=== PATIENT | female | born 1950 | race African-American/Black ===

== ENCOUNTER 2017-09-27 09:33 | Inpatient (IN) | payer MEDICARE, MEDICAID ==
[~2017-09-27] VITALS: Ht 154.9 cm; Wt 65.4 kg
[~2017-09-27 09:33] MED LIST: ALBU8HFA4 IH; AZIT250T9 PO; CALC25 PO; CARV25 PO; CELE100 PO; CINA30 PO; CLON0.2T PO; FOLI0.8T2 PO; FURO80 PO; GABA-318 PO; INSLAN SQ; INSU100C14 SQ; INSU100V3 IV; LISI10TA7 PO; PHOSLOC PO; SIMV-261 PO; SODI650T PO; [UNRECOGNIZED DRUG - OTHER] PO
[2017-09-27 09:48] LABS: GLUCOSE,POINT OF CARE 150 MG/DL (70-110)
[2017-09-27] MEDS ORDERED: FAMO20 PO (09:52)
[2017-09-27] MEDS ORDERED: OMEP20 PO (09:52)
[2017-09-27] MEDS ORDERED: SEVEC800 PO (09:52)
[2017-09-27] MEDS ORDERED: AMLO-511 PO (09:52)
[2017-09-27] MEDS ORDERED: ESCI10TA PO (09:52)
[2017-09-27 10:20] LABS: BASOPHILS % (AUTO) 0.5 % (0.0-2.0); EOSINOPHILS % (AUTO) 0.9 % (1.0-6.0); HEMATOCRIT 39.4 % (36-46); HEMOGLOBIN 12.9 g/dL (12.0-16.0); LYMPHOCYTES # (AUTO) 0.7 K/uL (1.0-4.8); LYMPHOCYTES % (AUTO) 7.8 % (22.0-44.0); MEAN CORPUSCULAR HEMOGLOBIN 30.3 pg (26.0-34.0); MEAN CORPUSCULAR HGB CONC 32.7 G/dL (31.0-37.0); MEAN CORPUSCULAR VOLUME 93 fL (80-100); MONOCYTES # (AUTO) 0.6 K/uL (0.1-1.0); MONOCYTES % (AUTO) 6.7 % (2.0-9.0); NEUTROPHILS # (AUTO) 7.3 K/uL (1.8-7.7); NEUTROPHILS % (AUTO) 84.1 % (40.0-70.0); PLATELET COUNT (AUTO) 238 K/uL (150-450); RED BLOOD CELL COUNT(AUTO) 4.25 MIL/uL (4.00-5.20); RED CELL DISTRIBUTION WIDTH 15.1 % (11.5-14.5)
[2017-09-27 10:33] LABS: CALCIUM, TOTAL 9.2 mg/dL (8.8-10.5); CREATININE 6.64 mg/dL (0.60-1.30); POTASSIUM 4.7 mmol/L (3.5-5.1)
[2017-09-27 10:38] LABS: ALBUMIN 3.1 g/dL (3.4-5.0); BILIRUBIN,TOTAL 0.5 mg/dL (0.1-1.0); TOTAL PROTEIN, SERUM 7.1 g/dL (6.4-8.2)
[2017-09-27 12:23] LABS: APPEARANCE,URINE CLOUDY (CLEAR); BILIRUBIN,URINE NEGATIVE (NEGATIVE); GLUCOSE, URINE (UA) 100 mg/dL (NEGATIVE); KETONES,URINE NEGATIVE (NEGATIVE); LEUKOCYTE ESTERASE ,URINE TRACE (NEGATIVE); NITRATE,URINE NEGATIVE (NEGATIVE); OCCULT BLOOD,URINE NEGATIVE (NEGATIVE); PROTEIN,URINE SEE CONFIRM (NEGATIVE); UROBILINOGEN,URINE 0.2 mg/dL (<=1.0)
[2017-09-27 12:30] LABS: SULFOSALICYLIC ACID,URINE 3+ (Negative)
[2017-09-27 12:31] LABS: BACTERIA,URINE Few /HPF (None Seen); RBC,URINE 0-2 /HPF (0-2); SQUAMOUS EPITHELIAL CELL,UR Many /LPF (None Seen)
[2017-09-27] MEDS ORDERED: 0.9% SODIUM CHLORIDE 10 ML SYRINGE IVP PRN (13:45)
[2017-09-27] MEDS ORDERED: ONDANSETRON HCL 4 MG/2 ML VIAL IVP PRN (13:45)
[2017-09-27] MEDS ORDERED: ACETAMINOPHEN 325 MG TABLET PO PRN ×2 (13:45→15:45)
[2017-09-27] MEDS ORDERED: MORPHINE SULFATE 4 MG/ML SYRINGE IVP ONE (14:15)
[2017-09-27] MEDS ORDERED: DEXTROSE 50%-WATER 25 GM/50 ML SYRINGE IVP PRN (15:45)
[2017-09-27] MEDS ORDERED: BISACODYL 10 MG RECTAL RECTAL SUPPOSITORY PR PRN (15:45)
[2017-09-27] MEDS ORDERED: ASPIRIN 81 MG CHEWABLE TABLET PO SCH (15:45)
[2017-09-27] MEDS: CefTRIAXone SODIUM 1 GM in DEXTROSE 5%-WATER 10 ML IV SCH (17:10)
[2017-09-27] MEDS ORDERED: LABETALOL HCL 5 MG/ML 20 ML VIAL IVP PRN (18:15)
[2017-09-27] MEDS ORDERED: HEPARIN SODIUM,PORCINE 5,000 UNITS/ML VIAL IVP PRN ×2 (18:15)
[2017-09-27 18:30] VITALS: BP 137/50
[2017-09-27] MEDS ORDERED: HEPARIN SODIUM,PORCINE 5,000 UNITS/ML VIAL IVP ONE (18:45)
[2017-09-27 18:57] LABS: GLUCOMETER DEV NAME(LOC) 5S 1M; GLUCOSE,POINT OF CARE 146 MG/DL (70-110)
[2017-09-27 20:37] VITALS: BP 141/58
[2017-09-27] MEDS: DOCUSATE SODIUM 100 MG CAPSULE PO SCH (20:46)
[2017-09-27] MEDS: ATORVASTATIN CALCIUM 20 MG TABLET PO SCH (20:46)
[2017-09-27] MEDS ORDERED: HEPARIN SODIUM,PORCINE 5,000 UNITS/ML VIAL SQ SCH (21:00)
[2017-09-27 21:33] LABS: INR 1.1 (0.9-1.1); PROTHROMBIN TIME 11.4 SEC (9.4-11.6)
[2017-09-27] MEDS: INSULIN ASPART 100 UNITS/ML SQ PRN (21:38)
[2017-09-27] MEDS: HEPARIN SODIUM 25000 UNITS/D5W 250 ML IV PRN (21:59)
[2017-09-27 22:28] VITALS: BP 152/63
[2017-09-27] MEDS: TEMAZEPAM 7.5 MG CAPSULE PO PRN (22:29)
[2017-09-28] VITALS (26 sets, daily range): BP systolic 106–170; BP diastolic 42–81
[2017-09-28 01:33] LABS: GLUCOMETER DEV NAME(LOC) 5N 1N; GLUCOSE,POINT OF CARE 208 MG/DL (70-110)
[2017-09-28] MEDS ORDERED: FLUT1AER IH (02:08)
[2017-09-28 04:39] LABS: CHOL/HDL RATIO 2.3 (3.9-5.7)
[2017-09-28] MEDS: HEPARIN SODIUM 25000 UNITS/D5W 250 ML IV PRN (05:42)
[2017-09-28] MEDS: INSULIN ASPART 100 UNITS/ML SQ PRN ×2 (06:10→21:09)
[2017-09-28] MEDS: PANTOPRAZOLE SODIUM 40 MG DR TABLET PO SCH (08:29)
[2017-09-28] MEDS: DOCUSATE SODIUM 100 MG CAPSULE PO SCH ×2 (08:29→20:47)
[2017-09-28] MEDS ORDERED: ASPIRIN 325 MG EC TABLET PO SCH (09:00)
[2017-09-28] MEDS ORDERED: ALPRAZolam 0.5 MG TABLET PO ONE (10:30)
[2017-09-28] MEDS ORDERED: SODIUM CHLORIDE 0.9% 1,000 ML IV ONE (10:40)
[2017-09-28 10:58] LABS: GLUCOMETER DEV NAME(LOC) 5N 1N; GLUCOSE,POINT OF CARE 105 MG/DL (70-110)
[2017-09-28] MEDS ORDERED: HEPARIN SODIUM,PORCINE 5,000 UNITS/ML VIAL SQ ONE (12:00)
[2017-09-28] MEDS ORDERED: LIDOCAINE HCL/PF 1% 2 ML VIAL INJ ONE (12:00)
[2017-09-28] MEDS ORDERED: SODIUM BICARBONATE 50 MEQ/50 ML VIAL ONE (12:31)
[2017-09-28] MEDS ORDERED: LIDOCAINE HCL/PF 1% 30 ML VIAL ONE (12:31)
[2017-09-28] MEDS ORDERED: HEPARIN SODIUM 1000 UNITS/NS 1,000 ML ONE (12:31)
[2017-09-28] MEDS ORDERED: IOHEXOL 300 MG/ML 150 ML VIAL ONE (12:31)
[2017-09-28] MEDS ORDERED: FentaNYL CITRATE-PF 100 MCG/2 ML VIAL ONE (13:11)
[2017-09-28] MEDS ORDERED: MIDAZOLAM HCL 2 MG/2 ML VIAL ONE (13:11)
[2017-09-28] MEDS ORDERED: IOHEXOL 300 MG/ML 100 ML VIAL ONE ×2 (13:31→13:41)
[2017-09-28] MEDS ORDERED: SODIUM CHLORIDE 0.9% 500 ML IV ONE (13:39)
[2017-09-28] MEDS ORDERED: HEPARIN SODIUM 2,000 UNITS in HEPARIN SODIUM 1000 UNITS/NS 1,000 ML IARTER ONE (13:39)
[2017-09-28] MEDS ORDERED: HEPARIN SODIUM,PORCINE 1,000 UNITS/ML 10 ML VIAL ONE (13:40)
[2017-09-28] MEDS ORDERED: NITROGLYCERIN 50 MG/D5% WATER 0 ML ONE (13:41)
[2017-09-28] MEDS ORDERED: VERAPAMIL HCL 2.5 MG/ML 2 ML VIAL ONE (13:41)
[2017-09-28] MEDS ORDERED: LIDOCAINE 1% 30 ML/SOD BICARB 8.4% 4 ML SQ ONE (13:45)
[2017-09-28] MEDS ORDERED: FentaNYL CITRATE-PF 100 MCG/2 ML VIAL IVP ONE (13:45)
[2017-09-28] MEDS ORDERED: IOHEXOL 300 MG/ML 100 ML VIAL IARTER ONE (13:45)
[2017-09-28] MEDS ORDERED: HEPARIN SODIUM,PORCINE 5,000 UNITS/ML VIAL IVP ONE (13:45)
[2017-09-28] MEDS ORDERED: IOHEXOL 300 MG/ML 150 ML VIAL IARTER ONE (13:45)
[2017-09-28] MEDS ORDERED: MIDAZOLAM HCL 2 MG/2 ML VIAL IVP ONE (13:45)
[2017-09-28] MEDS: MORPHINE SULFATE 2 MG/ML SYRINGE IVP PRN (15:07)
[2017-09-28] MEDS: CefTRIAXone SODIUM 1 GM in DEXTROSE 5%-WATER 10 ML IV SCH (16:08)
[2017-09-28] MEDS ORDERED: SODIUM CHLORIDE 0.9% 2,000 ML IV ONE (17:28)
[2017-09-28] MEDS ORDERED: MANNITOL 25%-12.5 GM/50 ML VIAL IVP PRN (18:15)
[2017-09-28] MEDS ORDERED: HEPARIN SODIUM,PORCINE 1,000 UNITS/ML VIAL IVP ONE ×2 (18:15)
[2017-09-28 19:14] LABS: GLUCOSE,POINT OF CARE 116 MG/DL (70-110)
[2017-09-28] MEDS: CARVEDILOL 3.125 MG TABLET PO SCH (20:46)
[2017-09-28] MEDS: ATORVASTATIN CALCIUM 20 MG TABLET PO SCH (20:47)
[2017-09-28] MEDS: TEMAZEPAM 7.5 MG CAPSULE PO PRN (20:47)
[2017-09-29] VITALS (9 sets, daily range): BP systolic 123–158; BP diastolic 42–92
[2017-09-29 05:45] LABS: BASOPHILS % (AUTO) 0.6 % (0.0-2.0); EOSINOPHILS % (AUTO) 3.1 % (1.0-6.0); HEMOGLOBIN 11.2 g/dL (12.0-16.0); LYMPHOCYTES # (AUTO) 0.8 K/uL (1.0-4.8); MEAN CORPUSCULAR HEMOGLOBIN 30.1 pg (26.0-34.0); MEAN CORPUSCULAR HGB CONC 32.8 G/dL (31.0-37.0); MEAN CORPUSCULAR VOLUME 92 fL (80-100); MONOCYTES # (AUTO) 0.8 K/uL (0.1-1.0); MONOCYTES % (AUTO) 10.8 % (2.0-9.0); NEUTROPHILS # (AUTO) 5.2 K/uL (1.8-7.7); NEUTROPHILS % (AUTO) 73.5 % (40.0-70.0); PLATELET COUNT (AUTO) 199 K/uL (150-450); RED BLOOD CELL COUNT(AUTO) 3.71 MIL/uL (4.00-5.20); RED CELL DISTRIBUTION WIDTH 14.8 % (11.5-14.5)
[2017-09-29 06:08] LABS: ALBUMIN 2.6 g/dL (3.4-5.0); BILIRUBIN,TOTAL 0.3 mg/dL (0.1-1.0); CREATININE 5.98 mg/dL (0.60-1.30); PHOSPHORUS 5.8 mg/dL (2.5-4.9); POTASSIUM 5.7 mmol/L (3.5-5.1); TOTAL PROTEIN, SERUM 6.4 g/dL (6.4-8.2)
[2017-09-29 06:23] LABS: GLUCOSE,POINT OF CARE 109 MG/DL (70-110)
[2017-09-29 08:03] LABS: GLUCOMETER DEV NAME(LOC) 5S 1M; GLUCOSE,POINT OF CARE 119 MG/DL (70-110)
[2017-09-29 08:47] LABS: GLUCOSE,POINT OF CARE 195 MG/DL (70-110)
[2017-09-29 08:47] LABS: GLUCOSE,POINT OF CARE 134 MG/DL (70-110)
[2017-09-29] MEDS ORDERED: LISINOPRIL 5 MG TABLET PO SCH ×2 (09:00)
[2017-09-29] MEDS: DOCUSATE SODIUM 100 MG CAPSULE PO SCH ×3 (09:00→20:47)
[2017-09-29] MEDS: PANTOPRAZOLE SODIUM 40 MG DR TABLET PO SCH (09:21)
[2017-09-29] MEDS: CLOPIDOGREL BISULFATE 75 MG TABLET PO SCH (09:21)
[2017-09-29] MEDS: ASPIRIN 81 MG EC TABLET PO SCH (09:21)
[2017-09-29] MEDS: MORPHINE SULFATE 2 MG/ML SYRINGE IVP PRN ×2 (09:22→14:08)
[2017-09-29] MEDS: CARVEDILOL 3.125 MG TABLET PO SCH ×2 (09:22→20:47)
[2017-09-29] MEDS: CefTRIAXone SODIUM 1 GM in DEXTROSE 5%-WATER 10 ML IV SCH (16:23)
[2017-09-29] MEDS: ONDANSETRON HCL 4 MG/2 ML VIAL IVP PRN (17:50)
[2017-09-29] MEDS: SEVELAMER CARBONATE 800 MG TABLET PO SCH (18:30)
[2017-09-29] MEDS: INSULIN ASPART 100 UNITS/ML SQ PRN (18:30)
[2017-09-29] MEDS: ATORVASTATIN CALCIUM 40 MG TABLET PO SCH (20:47)
[2017-09-29 22:43] LABS: GLUCOMETER DEV NAME(LOC) 5N 2S; GLUCOSE,POINT OF CARE 166 MG/DL (70-110)
[2017-09-29] MEDS: TEMAZEPAM 7.5 MG CAPSULE PO PRN (23:34)
[2017-09-30] VITALS (9 sets, daily range): BP systolic 137–165; BP diastolic 50–78
[2017-09-30 06:58] LABS: BASOPHILS % (AUTO) 0.6 % (0.0-2.0); EOSINOPHILS % (AUTO) 3.6 % (1.0-6.0); HEMATOCRIT 33.1 % (36-46); HEMOGLOBIN 10.9 g/dL (12.0-16.0); LYMPHOCYTES % (AUTO) 16.9 % (22.0-44.0); MEAN CORPUSCULAR HEMOGLOBIN 30.2 pg (26.0-34.0); MEAN CORPUSCULAR VOLUME 91 fL (80-100); MONOCYTES # (AUTO) 0.7 K/uL (0.1-1.0); MONOCYTES % (AUTO) 11.2 % (2.0-9.0); NEUTROPHILS # (AUTO) 4.1 K/uL (1.8-7.7); NEUTROPHILS % (AUTO) 67.7 % (40.0-70.0); PLATELET COUNT (AUTO) 182 K/uL (150-450); RED BLOOD CELL COUNT(AUTO) 3.62 MIL/uL (4.00-5.20); RED CELL DISTRIBUTION WIDTH 14.9 % (11.5-14.5)
[2017-09-30 07:17] LABS: GLUCOMETER DEV NAME(LOC) 5N 2S; GLUCOSE,POINT OF CARE 98 MG/DL (70-110)
[2017-09-30 07:37] LABS: ALBUMIN 2.6 g/dL (3.4-5.0); BILIRUBIN,TOTAL 0.3 mg/dL (0.1-1.0); CALCIUM, TOTAL 9.4 mg/dL (8.8-10.5); CREATININE 4.56 mg/dL (0.60-1.30); MAGNESIUM 1.8 mg/dL (1.80-2.40); TOTAL PROTEIN, SERUM 6.2 g/dL (6.4-8.2)
[2017-09-30] MEDS ORDERED: SODIUM CHLORIDE 0.9% 2,000 ML IV ONE (08:07)
[2017-09-30] MEDS: DOCUSATE SODIUM 100 MG CAPSULE PO SCH ×2 (08:29→21:00)
[2017-09-30] MEDS: PANTOPRAZOLE SODIUM 40 MG DR TABLET PO SCH (08:29)
[2017-09-30] MEDS: CLOPIDOGREL BISULFATE 75 MG TABLET PO SCH (08:29)
[2017-09-30] MEDS: SEVELAMER CARBONATE 800 MG TABLET PO SCH ×4 (08:29→18:00)
[2017-09-30] MEDS: ASPIRIN 81 MG EC TABLET PO SCH (08:29)
[2017-09-30 08:37] LABS: GLUCOSE,POINT OF CARE 133 MG/DL (70-110)
[2017-09-30] MEDS: MORPHINE SULFATE 2 MG/ML SYRINGE IVP PRN (11:40)
[2017-09-30] MEDS: CARVEDILOL 6.25 MG TABLET PO SCH ×2 (12:08→22:22)
[2017-09-30] MEDS: LISINOPRIL 10 MG TABLET PO SCH (12:11)
[2017-09-30] MEDS: ISOSORBIDE MONONITRATE 30 MG ER TABLET PO SCH (12:11)
[2017-09-30] MEDS: ONDANSETRON HCL 4 MG/2 ML VIAL IVP PRN (12:23)
[2017-09-30] MEDS: CefTRIAXone SODIUM 1 GM in DEXTROSE 5%-WATER 10 ML IV SCH (15:52)
[2017-09-30] MEDS ORDERED: HEPARIN SODIUM,PORCINE 1,000 UNITS/ML VIAL IVP ONE (16:34)
[2017-09-30] MEDS ORDERED: LORazepam 2 MG/ML VIAL IVP ONE ×2 (18:15→18:45)
[2017-09-30] MEDS: ATORVASTATIN CALCIUM 40 MG TABLET PO SCH (22:22)
[2017-10-01 03:53] LABS: GLUCOMETER DEV NAME(LOC) 5N 2S; GLUCOSE,POINT OF CARE 112 MG/DL (70-110)
[2017-10-01] MEDS: INSULIN ASPART 100 UNITS/ML SQ PRN ×2 (05:51→12:07)
[2017-10-01 06:04] VITALS: BP 148/59
[2017-10-01 06:34] LABS: BASOPHILS % (AUTO) 0.5 % (0.0-2.0); EOSINOPHILS % (AUTO) 2.4 % (1.0-6.0); HEMATOCRIT 34.6 % (36-46); HEMOGLOBIN 11.3 g/dL (12.0-16.0); LYMPHOCYTES # (AUTO) 0.7 K/uL (1.0-4.8); LYMPHOCYTES % (AUTO) 9.8 % (22.0-44.0); MEAN CORPUSCULAR HEMOGLOBIN 30.2 pg (26.0-34.0); MEAN CORPUSCULAR HGB CONC 32.7 G/dL (31.0-37.0); MEAN CORPUSCULAR VOLUME 92 fL (80-100); MONOCYTES # (AUTO) 0.7 K/uL (0.1-1.0); MONOCYTES % (AUTO) 10.2 % (2.0-9.0); NEUTROPHILS # (AUTO) 5.2 K/uL (1.8-7.7); NEUTROPHILS % (AUTO) 77.1 % (40.0-70.0); PLATELET COUNT (AUTO) 197 K/uL (150-450); RED BLOOD CELL COUNT(AUTO) 3.75 MIL/uL (4.00-5.20)
[2017-10-01 07:11] LABS: ALBUMIN 2.7 g/dL (3.4-5.0); BILIRUBIN,TOTAL 0.3 mg/dL (0.1-1.0); CALCIUM, TOTAL 9.3 mg/dL (8.8-10.5); CREATININE 4.14 mg/dL (0.60-1.30); MAGNESIUM 1.9 mg/dL (1.80-2.40); POTASSIUM 4.4 mmol/L (3.5-5.1); TOTAL PROTEIN, SERUM 6.3 g/dL (6.4-8.2)
[2017-10-01 07:42] VITALS: BP 134/62
[2017-10-01] MEDS: SEVELAMER CARBONATE 800 MG TABLET PO SCH ×2 (08:00→14:15)
[2017-10-01] MEDS ORDERED: LORazepam 2 MG/ML VIAL IVP ONE (08:00)
[2017-10-01] MEDS ORDERED: VITAMIN B COMP/VIT C/FOLIC ACID CAPSULE PO SCH (09:00)
[2017-10-01 09:09] LABS: GLUCOMETER DEV NAME(LOC) 5S 2N; GLUCOSE,POINT OF CARE 118 MG/DL (70-110)
[2017-10-01 09:10] LABS: GLUCOMETER DEV NAME(LOC) 5S 2N; GLUCOSE,POINT OF CARE 158 MG/DL (70-110)
[2017-10-01 09:10] LABS: GLUCOMETER DEV NAME(LOC) 5S 2N; GLUCOSE,POINT OF CARE 158 MG/DL (70-110)
[2017-10-01 09:10] LABS: GLUCOMETER DEV NAME(LOC) 5S 2N; GLUCOSE,POINT OF CARE 165 MG/DL (70-110)
[2017-10-01] MEDS: ONDANSETRON HCL 4 MG/2 ML VIAL IVP PRN (10:44)
[2017-10-01] MEDS ORDERED: IOVERSOL 350 MG/ML 100 ML VIAL ONE (10:49)
[2017-10-01 11:31] VITALS: BP 142/60
[2017-10-01] MEDS: ISOSORBIDE MONONITRATE 30 MG ER TABLET PO SCH (14:16)
[2017-10-01] MEDS: PANTOPRAZOLE SODIUM 40 MG DR TABLET PO SCH (14:17)
[2017-10-01] MEDS: CARVEDILOL 6.25 MG TABLET PO SCH (14:17)
[2017-10-01] MEDS: LISINOPRIL 10 MG TABLET PO SCH (14:17)
[2017-10-01] MEDS: DOCUSATE SODIUM 100 MG CAPSULE PO SCH (14:17)
[2017-10-01 15:25] VITALS: BP 139/43
[2017-10-01] MEDS ORDERED: ATOR40TA28 PO (16:01)
[2017-10-01] MEDS ORDERED: CARV6.2579 PO (16:01)
[2017-10-01] MEDS ORDERED: LISI-661 PO (16:02)
[2017-10-01] MEDS ORDERED: ISOS30TA6 PO (16:02)
[2017-10-01 20:03] LABS: GLUCOMETER DEV NAME(LOC) 5S 2N; GLUCOSE,POINT OF CARE 102 MG/DL (70-110)
== END 2017-10-01 16:35 | disposition home or self-care (01) | DRG 280 ==
LOC: EMS 09:34 → AHU 13:55 → 5N 13:55 → 5S 13:55 → ICU 09-28 14:31 → 5N 09-29 13:46
PROVIDERS: ADMIT Internal Medicine; ATTEND Internal Medicine
PROC: 4A023N7 Measurement of Cardiac Sampling and Pressure, Left Heart, Percutaneous Approach (ICD-10-PCS; principal; 2017-09-28)
PROC: B211YZZ Fluoroscopy of Multiple Coronary Arteries using Other Contrast (ICD-10-PCS; 2017-09-28)
PROC: B215YZZ Fluoroscopy of Left Heart using Other Contrast (ICD-10-PCS; 2017-09-28)
PROC: 5A1D70Z Performance of Urinary Filtration, Intermittent, Less than 6 Hours Per Day (ICD-10-PCS; 2017-09-28)
PROC: B41F1ZZ Fluoroscopy of Right Lower Extremity Arteries using Low Osmolar Contrast (ICD-10-PCS; 2017-09-28)
PROC: 5A1D70Z Performance of Urinary Filtration, Intermittent, Less than 6 Hours Per Day (ICD-10-PCS; 2017-09-30)
DX: I21.9 Acute myocardial infarction, unspecified (principal); N18.6 End stage renal disease; I60.9 Nontraumatic subarachnoid hemorrhage, unspecified; I13.2 Hypertensive heart and chronic kidney disease with heart failure and with stage 5 chronic kidney disease, or end stage renal disease; E11.22 Type 2 diabetes mellitus with diabetic chronic kidney disease; I42.9 Cardiomyopathy, unspecified; E83.39 Other disorders of phosphorus metabolism; N25.81 Secondary hyperparathyroidism of renal origin; I50.20 Unspecified systolic (congestive) heart failure; R74.8 Abnormal levels of other serum enzymes; E11.51 Type 2 diabetes mellitus with diabetic peripheral angiopathy without gangrene; G89.4 Chronic pain syndrome; R62.7 Adult failure to thrive; D64.9 Anemia, unspecified; K57.90 Diverticulosis of intestine, part unspecified, without perforation or abscess without bleeding; E78.00 Pure hypercholesterolemia, unspecified; E87.5 Hyperkalemia; E78.5 Hyperlipidemia, unspecified; F17.210 Nicotine dependence, cigarettes, uncomplicated; I25.10 Atherosclerotic heart disease of native coronary artery without angina pectoris; F40.240 Claustrophobia; K57.30 Diverticulosis of large intestine without perforation or abscess without bleeding; Z86.73 Personal history of transient ischemic attack (TIA), and cerebral infarction without residual deficits; Z90.49 Acquired absence of other specified parts of digestive tract; Z99.2 Dependence on renal dialysis; Z88.5 Allergy status to narcotic agent; Z79.4 Long term (current) use of insulin; Z79.899 Other long term (current) drug therapy
CPT/HCPCS: 70450; 70496; 74018; 74176; 80074; 82962; 83735; 84100; 87081; 87086; 87340; 93005; 93306; 96374; 96375; 99285; J0696; J1644; J2060; J2250; J2270; J2405; J3010; J3490; J7030; J7060; Q9967

== ENCOUNTER 2018-02-01 18:58 | Inpatient (IN) | payer MEDICARE, MEDICAID ==
[~2018-02-01] VITALS: Ht 154.9 cm; Wt 60.0 kg
[~2018-02-01 18:58] MED LIST changes: +AMLO-511 PO; +ATOR40TA28 PO; -AZIT250T9 PO; -CALC25 PO; -CARV25 PO; +CARV6.2579 PO; -CELE100 PO; -CINA30 PO; -CLON0.2T PO; +ESCI10TA PO; +FAMO20 PO; +FLUT1AER IH; -FURO80 PO; -GABA-318 PO; -INSLAN SQ; -INSU100C14 SQ; -INSU100V3 IV; +ISOS30TA6 PO; +LISI-661 PO; -LISI10TA7 PO; +OMEP20 PO; -PHOSLOC PO; +SEVEC800 PO; -SIMV-261 PO; -SODI650T PO; -[UNRECOGNIZED DRUG - OTHER] PO
[2018-02-01 21:36] LABS: BASOPHILS % (AUTO) 0.7 % (0.0-2.0); EOSINOPHILS % (AUTO) 3.4 % (1.0-6.0); HEMATOCRIT 36.5 % (36-46); HEMOGLOBIN 12.3 g/dL (12.0-16.0); LYMPHOCYTES # (AUTO) 0.7 K/uL (1.0-4.8); LYMPHOCYTES % (AUTO) 11.3 % (22.0-44.0); MEAN CORPUSCULAR HEMOGLOBIN 31.6 pg (26.0-34.0); MEAN CORPUSCULAR HGB CONC 33.6 G/dL (31.0-37.0); MEAN CORPUSCULAR VOLUME 94 fL (80-100); MONOCYTES # (AUTO) 0.6 K/uL (0.1-1.0); MONOCYTES % (AUTO) 9.8 % (2.0-9.0); NEUTROPHILS # (AUTO) 4.4 K/uL (1.8-7.7); NEUTROPHILS % (AUTO) 74.8 % (40.0-70.0); PLATELET COUNT (AUTO) 156 K/uL (150-450); RED BLOOD CELL COUNT(AUTO) 3.89 MIL/uL (4.00-5.20); RED CELL DISTRIBUTION WIDTH 16.3 % (11.5-14.5)
[2018-02-01 21:50] LABS: LIPASE 573 U/L (73-393)
[2018-02-01] MEDS ORDERED: ALBUTEROL SULFATE 2.5 MG/0.5 ML NEB SOLUTION NEB ONE (22:00)
[2018-02-01] MEDS ORDERED: IPRATROPIUM BROMIDE 0.5 MG/2.5 ML NEB SOLUTION NEB ONE (22:00)
[2018-02-01 22:15] LABS: B-TYPE NATRIURETIC PEPTIDE > 5000 pg/mL (0-100)
[2018-02-01 23:07] LABS: ALBUMIN 2.9 g/dL (3.4-5.0); BILIRUBIN,TOTAL 0.5 mg/dL (0.1-1.0); CALCIUM, TOTAL 8.5 mg/dL (8.8-10.5); CREATININE 6.72 mg/dL (0.60-1.30); TOTAL PROTEIN, SERUM 6.7 g/dL (6.4-8.2)
[2018-02-01 23:11] LABS: POTASSIUM 2.3 mmol/L (3.5-5.1)
[2018-02-01] MEDS ORDERED: POTASSIUM CHLORIDE 20 MEQ ER TABLET PO ONE (23:15)
[2018-02-01] MEDS ORDERED: MethylPREDNISolone SOD SUCC 125 MG/2 ML VIAL IVP ONE (23:30)
[2018-02-01] MEDS ORDERED: AZITHROMYCIN 500 MG/NS 250 ML IV ONE (23:30)
[2018-02-02 01:52] VITALS: BP 136/62
[2018-02-02 04:30] VITALS: BP 150/69
[2018-02-02] MEDS ORDERED: ALBUTEROL SULFATE 2.5 MG/0.5 ML NEB SOLUTION NEB PRN (05:30)
[2018-02-02] MEDS ORDERED: ONDANSETRON HCL 4 MG/2 ML VIAL IVP PRN ×2 (05:30)
[2018-02-02] MEDS ORDERED: ACETAMINOPHEN 325 MG TABLET PO PRN ×2 (05:30)
[2018-02-02] MEDS ORDERED: 0.9% SODIUM CHLORIDE 10 ML SYRINGE IVP PRN ×2 (05:30)
[2018-02-02] MEDS ORDERED: BISACODYL 10 MG RECTAL RECTAL SUPPOSITORY PR PRN (05:30)
[2018-02-02] MEDS ORDERED: IPRATROPIUM BROMIDE 0.5 MG/2.5 ML NEB SOLUTION NEB PRN (05:30)
[2018-02-02] MEDS ORDERED: DEXTROSE 50%-WATER 25 GM/50 ML SYRINGE IVP PRN (06:00)
[2018-02-02 06:13] LABS: BASOPHILS % (AUTO) 0.1 % (0.0-2.0); EOSINOPHILS % (AUTO) 0 % (1.0-6.0); HEMATOCRIT 36.5 % (36-46); HEMOGLOBIN 12.6 g/dL (12.0-16.0); LYMPHOCYTES # (AUTO) 0.2 K/uL (1.0-4.8); LYMPHOCYTES % (AUTO) 2.8 % (22.0-44.0); MEAN CORPUSCULAR HEMOGLOBIN 32.9 pg (26.0-34.0); MEAN CORPUSCULAR HGB CONC 34.6 G/dL (31.0-37.0); MEAN CORPUSCULAR VOLUME 95 fL (80-100); MONOCYTES # (AUTO) 0.1 K/uL (0.1-1.0); MONOCYTES % (AUTO) 1.3 % (2.0-9.0); NEUTROPHILS # (AUTO) 5.7 K/uL (1.8-7.7); PLATELET COUNT (AUTO) 153 K/uL (150-450); RED BLOOD CELL COUNT(AUTO) 3.84 MIL/uL (4.00-5.20); RED CELL DISTRIBUTION WIDTH 16.7 % (11.5-14.5)
[2018-02-02] MEDS: CefTRIAXone SODIUM 1 GM in DEXTROSE 5%-WATER 10 ML IV SCH (06:18)
[2018-02-02] MEDS: INSULIN LISPRO 100 UNITS/ML SQ PRN ×4 (06:20→23:16)
[2018-02-02 06:21] LABS: NEUTROPHILS % (AUTO) 95.8 % (40.0-70.0)
[2018-02-02 06:23] LABS: CALCIUM, TOTAL 8.8 mg/dL (8.8-10.5); CREATININE 7.12 mg/dL (0.60-1.30); POTASSIUM 3.3 mmol/L (3.5-5.1)
[2018-02-02 06:32] LABS: ALBUMIN 2.9 g/dL (3.4-5.0); BILIRUBIN,TOTAL 0.6 mg/dL (0.1-1.0); MAGNESIUM 2.4 mg/dL (1.80-2.40); TOTAL PROTEIN, SERUM 6.7 g/dL (6.4-8.2)
[2018-02-02 07:10] LABS: PHOSPHORUS 9.6 mg/dL (2.5-4.9)
[2018-02-02 07:17] VITALS: BP 153/72
[2018-02-02] MEDS: SEVELAMER CARBONATE 800 MG TABLET PO SCH ×3 (08:03→16:43)
[2018-02-02] MEDS: MethylPREDNISolone SOD SUCC 40 MG/ML VIAL IVP SCH ×3 (08:03→23:36)
[2018-02-02] MEDS: FLUTICASONE/VILANTEROL 100-25 MCG/INH INHALER [14] IH SCH (08:03)
[2018-02-02] MEDS: HEPARIN SODIUM,PORCINE 5,000 UNITS/ML VIAL SQ SCH ×2 (08:03→21:00)
[2018-02-02] MEDS: ESCITALOPRAM OXALATE 10 MG TABLET PO SCH (08:04)
[2018-02-02] MEDS: LISINOPRIL 10 MG TABLET PO SCH (08:04)
[2018-02-02] MEDS: VITAMIN B COMP/VIT C/FOLIC ACID CAPSULE PO SCH (08:04)
[2018-02-02] MEDS: OMEPRAZOLE 20 MG CAPSULE PO SCH (08:04)
[2018-02-02] MEDS: ISOSORBIDE MONONITRATE 30 MG ER TABLET PO SCH (08:04)
[2018-02-02] MEDS: AmLODIPine BESYLATE 5 MG TABLET PO SCH (08:05)
[2018-02-02] MEDS: ASPIRIN 81 MG CHEWABLE TABLET PO SCH (08:05)
[2018-02-02] MEDS: CARVEDILOL 6.25 MG TABLET PO SCH ×2 (08:05→22:50)
[2018-02-02] MEDS: DOCUSATE SODIUM 100 MG CAPSULE PO SCH ×2 (08:05→22:50)
[2018-02-02 11:21] VITALS: BP 121/53
[2018-02-02] MEDS ORDERED: SODIUM CHLORIDE 0.9% 100 ML ONE (11:32)
[2018-02-02] MEDS ORDERED: SODIUM CHLORIDE 0.9% 2,000 ML IV ONE (12:17)
[2018-02-02] MEDS ORDERED: LORazepam 2 MG/ML VIAL IVP ONE (13:30)
[2018-02-02 13:57] LABS: GLUCOMETER DEV NAME(LOC) 5S 2Q; GLUCOSE,POINT OF CARE 264 MG/DL (70-110)
[2018-02-02 15:28] VITALS: BP 123/49
[2018-02-02] MEDS ORDERED: LIDOCAINE HCL/PF 1% 2 ML VIAL ONE (17:50)
[2018-02-02 19:48] LABS: GLUCOMETER DEV NAME(LOC) 5S 2Q; GLUCOSE,POINT OF CARE 215 MG/DL (70-110)
[2018-02-02] MEDS: ALBUTEROL SULFATE 2.5 MG/0.5 ML NEB SOLUTION NEB SCH (20:00)
[2018-02-02] MEDS: IPRATROPIUM BROMIDE 0.5 MG/2.5 ML NEB SOLUTION NEB SCH (20:00)
[2018-02-02 20:08] VITALS: BP 130/59
[2018-02-02 20:49] LABS: GLUCOMETER DEV NAME(LOC) 5S 2Q; GLUCOSE,POINT OF CARE 158 MG/DL (70-110)
[2018-02-02] MEDS ORDERED: HEPARIN SODIUM,PORCINE 5,000 UNITS/ML VIAL IVP ONE (22:45)
[2018-02-02] MEDS ORDERED: HEPARIN SODIUM,PORCINE 5,000 UNITS/ML VIAL IVP PRN ×2 (22:45)
[2018-02-02] MEDS: ATORVASTATIN CALCIUM 40 MG TABLET PO SCH (22:50)
[2018-02-02 23:05] LABS: GLUCOMETER DEV NAME(LOC) 5S 1M; GLUCOSE,POINT OF CARE 225 MG/DL (70-110)
[2018-02-02] MEDS ORDERED: SODIUM CHLORIDE 0.9% 500 ML IV ONE (23:24)
[2018-02-02 23:32] LABS: BASOPHILS % (AUTO) 0.3 % (0.0-2.0); EOSINOPHILS % (AUTO) 0 % (1.0-6.0); HEMOGLOBIN 12.6 g/dL (12.0-16.0); LYMPHOCYTES # (AUTO) 0.3 K/uL (1.0-4.8); LYMPHOCYTES % (AUTO) 3.9 % (22.0-44.0); MEAN CORPUSCULAR HGB CONC 33.9 G/dL (31.0-37.0); MEAN CORPUSCULAR VOLUME 94 fL (80-100); MONOCYTES # (AUTO) 0.2 K/uL (0.1-1.0); MONOCYTES % (AUTO) 2.6 % (2.0-9.0); NEUTROPHILS # (AUTO) 5.9 K/uL (1.8-7.7); PLATELET COUNT (AUTO) 148 K/uL (150-450); RED BLOOD CELL COUNT(AUTO) 3.93 MIL/uL (4.00-5.20); RED CELL DISTRIBUTION WIDTH 16.5 % (11.5-14.5)
[2018-02-02] MEDS: AZITHROMYCIN 500 MG/NS 250 ML IV SCH (23:35)
[2018-02-02 23:38] LABS: NEUTROPHILS % (AUTO) 93.2 % (40.0-70.0)
[2018-02-02 23:43] LABS: INR 1.1 (0.9-1.1); PROTHROMBIN TIME 11.9 SEC (9.4-11.6)
[2018-02-03] VITALS (7 sets, daily range): BP systolic 118–140; BP diastolic 47–70
[2018-02-03] MEDS: HEPARIN SODIUM 25000 UNITS/D5W 250 ML IV PRN (00:01)
[2018-02-03] MEDS: MORPHINE SULFATE 2 MG/ML SYRINGE IVP PRN (00:36)
[2018-02-03] MEDS: ALBUTEROL SULFATE 2.5 MG/0.5 ML NEB SOLUTION NEB SCH ×4 (02:00→20:00)
[2018-02-03] MEDS: IPRATROPIUM BROMIDE 0.5 MG/2.5 ML NEB SOLUTION NEB SCH ×4 (02:00→20:00)
[2018-02-03] MEDS: CefTRIAXone SODIUM 1 GM in DEXTROSE 5%-WATER 10 ML IV SCH (05:55)
[2018-02-03] MEDS: INSULIN LISPRO 100 UNITS/ML SQ PRN ×4 (05:59→21:28)
[2018-02-03 06:41] LABS: BASOPHILS % (AUTO) 0.1 % (0.0-2.0); EOSINOPHILS % (AUTO) 0 % (1.0-6.0); HEMATOCRIT 34.9 % (36-46); HEMOGLOBIN 11.9 g/dL (12.0-16.0); LYMPHOCYTES # (AUTO) 0.3 K/uL (1.0-4.8); LYMPHOCYTES % (AUTO) 4.3 % (22.0-44.0); MEAN CORPUSCULAR HEMOGLOBIN 32.5 pg (26.0-34.0); MEAN CORPUSCULAR HGB CONC 34.3 G/dL (31.0-37.0); MEAN CORPUSCULAR VOLUME 95 fL (80-100); MONOCYTES # (AUTO) 0.2 K/uL (0.1-1.0); MONOCYTES % (AUTO) 2.8 % (2.0-9.0); NEUTROPHILS # (AUTO) 7.2 K/uL (1.8-7.7); PLATELET COUNT (AUTO) 133 K/uL (150-450); RED BLOOD CELL COUNT(AUTO) 3.68 MIL/uL (4.00-5.20); RED CELL DISTRIBUTION WIDTH 16.7 % (11.5-14.5)
[2018-02-03 07:13] LABS: NEUTROPHILS % (AUTO) 92.8 % (40.0-70.0)
[2018-02-03] MEDS: OMEPRAZOLE 20 MG CAPSULE PO SCH (07:58)
[2018-02-03] MEDS: VITAMIN B COMP/VIT C/FOLIC ACID CAPSULE PO SCH (07:58)
[2018-02-03] MEDS: ASPIRIN 81 MG CHEWABLE TABLET PO SCH (07:58)
[2018-02-03] MEDS: ISOSORBIDE MONONITRATE 30 MG ER TABLET PO SCH ×2 (07:59→08:17)
[2018-02-03] MEDS: SEVELAMER CARBONATE 800 MG TABLET PO SCH ×3 (07:59→17:29)
[2018-02-03] MEDS: FLUTICASONE/VILANTEROL 100-25 MCG/INH INHALER [14] IH SCH (08:00)
[2018-02-03] MEDS: MethylPREDNISolone SOD SUCC 40 MG/ML VIAL IVP SCH ×2 (08:00→16:34)
[2018-02-03] MEDS: ESCITALOPRAM OXALATE 10 MG TABLET PO SCH (08:00)
[2018-02-03] MEDS: CARVEDILOL 6.25 MG TABLET PO SCH ×2 (08:02→20:28)
[2018-02-03] MEDS: AmLODIPine BESYLATE 5 MG TABLET PO SCH (08:02)
[2018-02-03] MEDS: DOCUSATE SODIUM 100 MG CAPSULE PO SCH ×2 (08:02→20:28)
[2018-02-03] MEDS: LISINOPRIL 10 MG TABLET PO SCH (08:03)
[2018-02-03 09:54] LABS: PLATELET MORPHOLOGY COMMENT GIANT PLTS PRESENT
[2018-02-03] MEDS ORDERED: LORazepam 2 MG/ML VIAL IVP ONE (11:45)
[2018-02-03] MEDS ORDERED: LIDOCAINE HCL/PF 1% 2 ML VIAL INJ ONE (16:57)
[2018-02-03] MEDS ORDERED: DiphenhydrAMINE HCL 50 MG/ML VIAL IM ONE (16:57)
[2018-02-03] MEDS: ATORVASTATIN CALCIUM 40 MG TABLET PO SCH (20:28)
[2018-02-03 22:04] LABS: GLUCOMETER DEV NAME(LOC) 5S 1M; GLUCOSE,POINT OF CARE 141 MG/DL (70-110)
[2018-02-03 22:04] LABS: GLUCOMETER DEV NAME(LOC) 5N 1P; GLUCOSE,POINT OF CARE 217 MG/DL (70-110)
[2018-02-03 22:05] LABS: GLUCOMETER DEV NAME(LOC) 5N 1P; GLUCOSE,POINT OF CARE 240 MG/DL (70-110)
[2018-02-04] MEDS: AZITHROMYCIN 500 MG/NS 250 ML IV SCH (00:49)
[2018-02-04] MEDS: MORPHINE SULFATE 2 MG/ML SYRINGE IVP PRN (00:49)
[2018-02-04] MEDS: MethylPREDNISolone SOD SUCC 40 MG/ML VIAL IVP SCH ×3 (00:49→15:19)
[2018-02-04] MEDS: HEPARIN SODIUM 25000 UNITS/D5W 250 ML IV PRN (00:57)
[2018-02-04] MEDS: IPRATROPIUM BROMIDE 0.5 MG/2.5 ML NEB SOLUTION NEB SCH ×3 (02:00→14:00)
[2018-02-04] MEDS: ALBUTEROL SULFATE 2.5 MG/0.5 ML NEB SOLUTION NEB SCH ×3 (02:00→14:00)
[2018-02-04] MEDS: DiphenhydrAMINE HCL 25 MG CAPSULE PO PRN ×2 (02:28→15:19)
[2018-02-04 04:30] VITALS: BP 131/83
[2018-02-04] MEDS: CefTRIAXone SODIUM 1 GM in DEXTROSE 5%-WATER 10 ML IV SCH (06:02)
[2018-02-04 06:19] LABS: GLUCOMETER DEV NAME(LOC) 5S 2Q; GLUCOSE,POINT OF CARE 247 MG/DL (70-110)
[2018-02-04] MEDS ORDERED: SODIUM CHLORIDE 0.9% 1,000 ML IV ONE (06:23)
[2018-02-04 07:18] VITALS: BP 130/65
[2018-02-04 07:24] LABS: EOSINOPHILS % (AUTO) 0 % (1.0-6.0); HEMATOCRIT 37.9 % (36-46); HEMOGLOBIN 12.8 g/dL (12.0-16.0); LYMPHOCYTES # (AUTO) 0.3 K/uL (1.0-4.8); LYMPHOCYTES % (AUTO) 3.4 % (22.0-44.0); MEAN CORPUSCULAR HEMOGLOBIN 32.2 pg (26.0-34.0); MEAN CORPUSCULAR HGB CONC 33.6 G/dL (31.0-37.0); MEAN CORPUSCULAR VOLUME 96 fL (80-100); MONOCYTES # (AUTO) 0.1 K/uL (0.1-1.0); MONOCYTES % (AUTO) 1.7 % (2.0-9.0); NEUTROPHILS # (AUTO) 7.5 K/uL (1.8-7.7); PLATELET COUNT (AUTO) 138 K/uL (150-450); RED BLOOD CELL COUNT(AUTO) 3.96 MIL/uL (4.00-5.20); RED CELL DISTRIBUTION WIDTH 16.9 % (11.5-14.5)
[2018-02-04 07:26] LABS: NEUTROPHILS % (AUTO) 94.9 % (40.0-70.0)
[2018-02-04] MEDS: FLUTICASONE/VILANTEROL 100-25 MCG/INH INHALER [14] IH SCH (07:28)
[2018-02-04] MEDS: ESCITALOPRAM OXALATE 10 MG TABLET PO SCH (07:28)
[2018-02-04] MEDS: SEVELAMER CARBONATE 800 MG TABLET PO SCH ×2 (07:32→12:12)
[2018-02-04] MEDS: DOCUSATE SODIUM 100 MG CAPSULE PO SCH (07:33)
[2018-02-04] MEDS: CARVEDILOL 6.25 MG TABLET PO SCH (07:33)
[2018-02-04] MEDS: ASPIRIN 81 MG CHEWABLE TABLET PO SCH (07:33)
[2018-02-04 07:36] LABS: CREATININE 3.86 mg/dL (0.60-1.30); POTASSIUM 3.6 mmol/L (3.5-5.1)
[2018-02-04] MEDS: ISOSORBIDE MONONITRATE 30 MG ER TABLET PO SCH (07:42)
[2018-02-04] MEDS: AmLODIPine BESYLATE 5 MG TABLET PO SCH (07:43)
[2018-02-04] MEDS: OMEPRAZOLE 20 MG CAPSULE PO SCH (07:43)
[2018-02-04] MEDS: VITAMIN B COMP/VIT C/FOLIC ACID CAPSULE PO SCH (07:43)
[2018-02-04] MEDS: LISINOPRIL 10 MG TABLET PO SCH (07:43)
[2018-02-04] MEDS ORDERED: LORazepam 2 MG/ML VIAL IVP ONE (09:15)
[2018-02-04 11:04] VITALS: BP 143/55
[2018-02-04] MEDS: INSULIN LISPRO 100 UNITS/ML SQ PRN (12:15)
[2018-02-04] MEDS ORDERED: PRED10TA3 PO (16:31)
[2018-02-04] MEDS ORDERED: AMOX1TAB16 PO (16:35)
[2018-02-04 20:48] LABS: GLUCOMETER DEV NAME(LOC) 5N 2S; GLUCOSE,POINT OF CARE 128 MG/DL (70-110)
== END 2018-02-04 16:55 | disposition home or self-care (01) | DRG 291 ==
LOC: EMS 18:59 → 5S 02-02 00:05
PROVIDERS: ADMIT Internal Medicine; ATTEND Internal Medicine
PROC: 5A1D70Z Performance of Urinary Filtration, Intermittent, Less than 6 Hours Per Day (ICD-10-PCS; principal; 2018-02-02)
PROC: 5A1D70Z Performance of Urinary Filtration, Intermittent, Less than 6 Hours Per Day (ICD-10-PCS; 2018-02-03)
PROC: 5A1D70Z Performance of Urinary Filtration, Intermittent, Less than 6 Hours Per Day (ICD-10-PCS; 2018-02-04)
DX: I13.2 Hypertensive heart and chronic kidney disease with heart failure and with stage 5 chronic kidney disease, or end stage renal disease (principal); N18.6 End stage renal disease; K85.90 Acute pancreatitis without necrosis or infection, unspecified; J96.21 Acute and chronic respiratory failure with hypoxia; J18.9 Pneumonia, unspecified organism; I50.33 Acute on chronic diastolic (congestive) heart failure; J44.1 Chronic obstructive pulmonary disease with (acute) exacerbation; E87.1 Hypo-osmolality and hyponatremia; N25.81 Secondary hyperparathyroidism of renal origin; R18.8 Other ascites; E87.2 Acidosis; D64.9 Anemia, unspecified; E11.22 Type 2 diabetes mellitus with diabetic chronic kidney disease; E78.00 Pure hypercholesterolemia, unspecified; E78.5 Hyperlipidemia, unspecified; F17.210 Nicotine dependence, cigarettes, uncomplicated; E83.39 Other disorders of phosphorus metabolism; F32.9 Major depressive disorder, single episode, unspecified; G89.4 Chronic pain syndrome; K59.00 Constipation, unspecified; E87.6 Hypokalemia; Z99.2 Dependence on renal dialysis; Z83.3 Family history of diabetes mellitus; Z82.49 Family history of ischemic heart disease and other diseases of the circulatory system; Z86.73 Personal history of transient ischemic attack (TIA), and cerebral infarction without residual deficits; Z91.19 Patient's noncompliance with other medical treatment and regimen; Z88.6 Allergy status to analgesic agent; Z79.899 Other long term (current) drug therapy; Z83.49 Family history of other endocrine, nutritional and metabolic diseases
CPT/HCPCS: 74176; 74181; 83036; 83735; 84100; 84145; 86704; 86706; 86738; 87081; 87340; 93005; 93306; 93970; 94640; 96365; 96375; 99285; J0456; J0696; J1200; J1644; J2060; J2270; J2920; J2930; J3490; J7030; J7040; J7050; J7060